=== PATIENT | male | born 1960 | race Caucasian/White ===

== ENCOUNTER 2023-09-14 13:10 | Emergency (ER) | payer BC ==
[2023-09-14] MEDS: Lidocaine 1% 5 ML VIAL ONE (14:59)
[2023-09-14] MEDS: Lidocaine 1% 5 ML VIAL INJECT ONE (15:18)
[2023-09-14 15:26] VITALS: BP 144/92; PULSE 60
[2023-09-14] MEDS: Diphtheria,Pertussis(Acell),Tetanus Vaccine 0.5 ML Syringe IM ONE (16:14)
[2023-09-14] MEDS: Bacitracin/Neomycin/Polymyxin B Oint 0.9 GM U/D Packet TOP ONE (16:14)
[2023-09-14] MEDS: Take Home: Cephalexin 500 MG Cap, 6 Cap Pack PO ONE (16:22)
[2023-09-14] MEDS: cefTRIAXone 1 GM Vial IM ONE (16:32)
== END 2023-09-14 16:37 | disposition home or self-care (01) ==
LOC: LL.ED 13:10
DX: S62.521B Displaced fracture of distal phalanx of right thumb, initial encounter for open fracture (principal); I10 Essential (primary) hypertension; Z79.899 Other long term (current) drug therapy; W23.0XXA Caught, crushed, jammed, or pinched between moving objects, initial encounter; Z23 Encounter for immunization
CPT/HCPCS: 12001; 73130-RT; 90471; 90715; 96372; 99283; 99283-25; A9270-GY; J0696; J3490